=== PATIENT | female | born 1960 | race Hispanic/Latino ===

== ENCOUNTER 2016-09-26 00:43 | Observation (INO) | payer BC ==
[2016-09-26 00:48] VITALS: BMI 27.4
--- NOTE | 2016-09-26 00:53 | ED PDOC ---
Arrival/HPI - General Chief Complaint: Alcohol Ingestion Time Seen by Provider: 09/26/16 00:49 - History of Present Illness Narrative History of Present Illness (Text): 09/26/16 00:50 Patient presents with slurring of speech and alcohol on breath. Admits to drinking throughout the day. Pt denies suicidal or homicidal ideations. Denies any trauma or injury. (Odilon Dawn) Past Medical History - Provider Review Nursing Documentation Reviewed: Yes - Infectious Disease Hx of Infectious Diseases: None - Psychiatric Hx Substance Use: No Family/Social History Family/Social History: Unknown Family HX Smoking Status: Unknown If Ever Smoked Hx Alcohol Use: Yes Hx Substance Use: No Allergies/Home Meds Allergies/Adverse Reactions: Allergies Unobtainable Allergy (Verified 09/26/16 00:47) Review of Systems - Review of Systems Systems not reviewed;Unavailable: Intoxicated Physical Exam - Physical Exam Narrative Physical Exam (Text): 09/26/16 00:51 pt in no distress, no airway compromise, breathing without difficulty, good insp /exp effort. No signs of head/torso/extremity trauma. Following commands without difficulty. Head: Present: Atraumatic, Normocephalic. No: Tenderness, Contusion, Swelling, Ecchymosis, Abrasion, Laceration Pupils: Present: PERRL Extroacular Muscles: Present: EOMI Conjunctiva: Present: Normal Mouth: Present: Moist Mucous Membranes Neck: Present: Normal Range of Motion. No: MIDLINE TENDERNESS, Paraspinal Tenderness Respiratory/Chest: Present: Clear to Auscultation, Good Air Exchange. No: Respiratory Distress, Accessory Muscle Use Cardiovascular: Present: Regular Rate and Rhythm, Normal S1, S2. No: Murmurs Abdomen: Present: Normal Bowel Sounds. No: Tenderness, Distention, Peritoneal Signs, Rebound, Guarding Back: Present: Normal Inspection. No: Midline Tenderness, Paraspinal Tenderness Upper Extremity: Present: Normal Inspection. No: Cyanosis, Edema Lower Extremity: Present: Normal Inspection. No: Edema Neurological: Present: GCS=15, CN II-XII Intact Skin: Present: Warm, Dry, Normal Color. No: Rashes Lymphatic: Present: OX3, NI, NC Psychiatric: Present: Alert. No: Agitated (Odilon Dawn) Vital Signs Temp Pulse Resp BP Pulse Ox 09/26/16 01:15 98.5 F 66 16 119/60 97 ED OBSERVATION Date of observation admission: 09/26/16 Time of observation admission: 00:52 - Observation admission statement Patient is being placed in observation because:: alcohol intoxication (Odilon Dawn) - Goals of Observation Goals of observation are:: monitoring and pending sobriety (dOilon Dawn) - Progress Note Progress Note: 09/26/16 07:[address] Simmons in stable condition, pending sobriety (Odilon Dawn) 09/26/16 07:10 Patient endorsed to me by Dr. Dawn. Pending sobriety. Patient brought in for alcohol intoxication. 09/26/16 09:10 Patient resting comfortably. 09/26/16 09:46 On re-evaluation, patient is clinically sober ambulating with a steady gait. Patient admits to drinking alcohol last night, denies any suicidal or homicidal ideation. Patient is stable for discharge. (Amarjit Simmons) Disposition/Present on Arrival - Present on Arrival Any Indicators Present on Arrival: No History of DVT/PE: No History of Uncontrolled Diabetes: No Urinary Catheter: No History of Decub. Ulcer: No History Surgical Site Infection Following: None - Disposition Have Diagnosis and Disposition been Completed?: Yes Disposition Time: 00:51 Patient Plan: Observation - Disposition Diagnosis: Alcohol intoxication Disposition: HOME/ ROUTINE Patient Problems: Current Active Problems Problem Status Onset Alcohol intoxication Acute Condition: STABLE
[2016-09-26 01:18] VITALS: TEMP 98.5
[2016-09-26 10:18] VITALS: BP 122/64; PULSE 63; RESP 14; O2SAT 98
== END 2016-09-26 10:29 | disposition home or self-care (01) ==
LOC: ED 00:43 → MERGE 00:52 → EROBSV 00:52 → EDBD 00:52
PROVIDERS: ADMIT Emergency Medicine; ATTEND Emergency Medicine
DX: F10.129 Alcohol abuse with intoxication, unspecified (principal)
CPT/HCPCS: 82948; 99283; G0378